=== PATIENT | female | born 1995 | race Caucasian/White ===

== ENCOUNTER 2017-10-07 07:35 | Emergency (ER) | payer OTHER ==
[2017-10-07 08:40] LABS: CALCIUM 9.3 mg/dL (8.5-10.1); CARBON DIOXIDE 27.2 mmol/L (21-32); CHLORIDE SERUM 104 mmol/L (98-107); CREATININE SERUM 0.7 mg/dL (0.6-1.0); GFR1 > 60 mL/min; GLUCOSE SERUM 109 mg/dL (74-106); POTASSIUM SERUM 4.7 mmol/L (3.5-5.1); SODIUM SERUM 140 mmol/L (136-145)
[2017-10-07 08:41] LABS: BASOPHIL % 0.2 % (0-2); PLATELET COUNT 239 x10^3mcL (130-400); RED CELL DISTRIBUTION WIDTH 12.5 % (11.5-14.5)
[2017-10-07 08:44] LABS: ALBUMIN 4.4 g/dL (3.4-5.0); ALKALINE PHOSPHATASE 77 U/L (46-116); ALT/SGPT 14 U/L (14-59); AST/SGOT 23 U/L (15-37); BILIRUBIN TOTAL 0.25 mg/dL (0.20-1.00); LIPASE 135 IU/L (73-393); TOTAL PROTEIN, SERUM 8.1 g/dL (6.4-8.2)
[2017-10-07 10:47] VITALS: BP 120/74
== END 2017-10-07 10:47 | disposition home or self-care (01) ==
LOC: ED 07:35
PROVIDERS: Specialist
DX: K80.50 Calculus of bile duct without cholangitis or cholecystitis without obstruction (principal); R07.89 Other chest pain
CPT/HCPCS: 36415; 83880; Q0092; Q0162

== ENCOUNTER 2017-10-15 05:22 | Emergency (ER) | payer OTHER ==
[2017-10-15 06:51] VITALS: BP 130/86
== END 2017-10-15 06:51 | disposition home or self-care (01) ==
LOC: ED 05:22
DX: K80.80 Other cholelithiasis without obstruction (principal)
CPT/HCPCS: J1885; J2270

== ENCOUNTER 2017-12-22 15:06 | Emergency (ER) | payer OTHER ==
[~2017-12-22] VITALS: Ht 157.5 cm; Wt 71.7 kg
[2017-12-22 15:12] VITALS: BP 118/72; Ht 157.5 cm; Wt 71.7 kg
== END 2017-12-22 15:45 | disposition home or self-care (01) ==
LOC: ED 15:06
DX: S90.852A Superficial foreign body, left foot, initial encounter (principal); W22.8XXA Striking against or struck by other objects, initial encounter; Y93.E9 Activity, other interior property and clothing maintenance; Y99.8 Other external cause status; Y92.89 Other specified places as the place of occurrence of the external cause